=== PATIENT | female | born 2000 | race Caucasian/White ===

== ENCOUNTER → 2021-03-31 01:38 | Outpatient (CLI) | payer OTHER, SELFPAY ==
[2021-03-31 19:36] LABS: SARS-CoV-2 RNA PCR Negative
== END ==
PROVIDERS: PCP Pediatrics; Visit Provider Otolaryngology
DX: Z01.812 Encounter for preprocedural laboratory examination (principal); Z20.822 Contact with and (suspected) exposure to COVID-19
CPT/HCPCS: C9803; U0003; U0005

== ENCOUNTER 2021-04-03 02:21 | Day surgery (SDC) | payer OTHER, SELFPAY ==
--- NOTE | 2021-03-27 14:09 | PC.NURSE ---
SPOKE WITH PT, SHE STATES SHE WOULD LIKE THE INTERVIEW AND INSTRUCTIONS TO COME FROM HER MOTHER. VERBAL CONSENT TO SPEAK WITH HER MOTHER GIVEN ON THE PHONE.
[2021-03-27 14:33] VITALS: BMI 19.9
[2021-04-03] VITALS (9 sets, daily range): BP systolic 94–113; BP diastolic 47–76; PULSE 64–85; RESP 13–26; TEMP 36.3–36.5; O2SAT 99–100
[2021-04-03] MEDS: ACETAMINOPHEN 500 MG TABLET 1000 MG PO (07:11)
--- NOTE | 2021-04-03 07:13 | WPDHPUPDATE1 ---
History and Physical Update Update Date/Time: 04/03/21 07:13 History and Physical has been reviewed, including an updated exam of the patient. There are NO changes in the patient's condition. Risks, benefits, and alternatives have been discussed and questions answered. Patient agrees to proceed with procedure.
--- NOTE | 2021-04-03 07:46 | WPDANESEPPF ---
Anes - Initial Pre Proc Eval Procedure: Operation Date: 04/03/21 08:30 Proposed Procedures p Bilateral Tonsillectomy - Jean Mccabe MD Date/Time: 04/03/21 07:46 Surgeon: Jean Mccabe MD Pre Op Diagnosis: chronic tonsillitis Patient Data Age: 20 Gender: F Height: 1.6 m Weight: 51 kg Last Vital Signs Temp 36.5 C 04/03/21 07:24 Pulse 78 04/03/21 07:24 Resp 18 04/03/21 07:24 BP 105/61 04/03/21 07:24 Pulse Ox 100 04/03/21 07:24 Allergies Allergy/AdvReac Type Severity Reaction Status Date / Time No Known Allergies Allergy Verified 04/03/21 06:54 Home Medications Medication Instructions Recorded Confirmed Type No Home Medications 03/27/21 03/27/21 History Patient hx anesthesia problems: none Family hx anesthesia problems: none PMFSH Social History Social History Smoking status: Never smoker Second hand tobacco smoke exposure: No Living arrangements: with family Spiritual care concerns: No Anes - Eval Final PreProcedure Day of Procedure 04/03/21 07:46 Patient weight: normal Heart: regular rate and rhythm Lungs: clear to auscultation and normal air movement Airway: Mallampati scale class II Neurological: alert and oriented Last oral intake: >/= 8 hours ASA classification: II Emergent: no Anesthetic plan: proceed Anesthesia type and monitoring: general ETT Informed Consent: The patient's anesthetic plan and its attendant risks and benefits were discussed with the patient/family/POA. Questions were solicited and answers provided to the satisfaction of the patient/family/POA.
[2021-04-03] MEDS: LACTATED RINGERS 1,000 ML 30 ML IV CONT (08:12)
[2021-04-03] MEDS: SCOPOLAMINE 1.5 MG PATCH TRANSDERM (08:13)
--- NOTE | 2021-04-03 08:44 | PM.PROC ---
Procedure Note - Detailed Date of procedure: 04/03/21 Pre-op diagnosis: chronic tonsillitis Post-op diagnosis: same Procedure performed: Tonsillectomy Description of procedure: On the date of procedure the patient was met in the preoperative area and risk and benefits of the procedure reviewed with the patient who elected to proceed with surgery. The patient was brought back to the room by the anesthesia team and placed under general endotracheal anesthesia. Once an adequate plane of anesthesia was obtained a timeout was performed to assure the patient identification the procedure to be performed were correct. The patient was then prepped and draped in the normal fashion for tonsillectomy. A head wrap and shoulder roll were placed. A Karolina-Nikhil retractor was inserted into the patient's oral cavity and the patient was suspended from the Perkins stand. The left tonsil grasped with a curved tonsillar tenaculum retracted medially and removed with electrocautery set on 8 standard. After the tonsil was removed the tonsillar fossa was inspected and no bleeding was noted. The right tonsil was then grasped with a curved tenaculum and retracted medially and removed in an identical manner. The tonsillar fossa was inspected and hemostasis was obtained with suction bovie electrocautery. The patient was taken out of suspension and then placed back into suspension. The tonsillar fossas were once again inspected and no bleeding was noted. A tonsil sponge was used to gently abrade the area and no bleeding was noted. The patient was removed from suspension. The Karolnia-Nikhil retractor was removed from the patient's oral cavity. There was no damage to the patient's teeth or lips. Care of the patient was then returned to anesthesia who extubated in the operating room and transferred the patient to recovery in stable condition without complication. Anesthesia: GETA Surgeon: Jean Mccabe MD Estimated blood loss (mL): 1 Drains: No Packing: No Pathology: yes Complications: None Condition: stable Disposition: PACU Findings: 3+ bilateral tonsils
== END 2021-04-03 10:40 | disposition home or self-care (01) ==
PROVIDERS: PCP Pediatrics; Visit Provider Otolaryngology
PROC: (CPT 42826; principal; 2021-04-03 08:30)
DX: J35.01 Chronic tonsillitis (principal)
CPT/HCPCS: 42826; 88304; A9270; C9803; J0330; J2250; J2405; J2704; J3010; J7120; U0003; U0005